=== PATIENT | female | born 1955 | race Hispanic/Latino ===

== ENCOUNTER → 2018-04-17 | Outpatient (CLI) | payer MEDICAID | END | disposition home or self-care (01) | LOC: OIH 10:13 | PROVIDERS: ATTEND Family Medicine | DX: I10 Essential (primary) hypertension (principal) | CPT/HCPCS: 71046 ==

== ENCOUNTER → 2018-07-19 | Outpatient (CLI) | payer MEDICAID | END | disposition home or self-care (01) | LOC: OIH 16:23 | PROVIDERS: ATTEND Family Medicine | DX: I10 Essential (primary) hypertension (principal) | CPT/HCPCS: 71046 ==